=== PATIENT | female | born 1990 | race African-American/Black ===

== ENCOUNTER 2018-02-06 16:05 | Emergency (ER) | payer SELFPAY ==
[~2018-02-06] VITALS: Ht 162.6 cm; Wt 83.0 kg
[2018-02-06 16:24] VITALS: BP 123/85
--- NOTE | 2018-02-06 16:51 | NUR ---
PT LEFT WITHOUT DISCHARGE INSTRUCTIONS.
== END 2018-02-06 16:52 | disposition home or self-care (01) ==
LOC: ER 16:14
DX: K14.0 Glossitis (principal); E07.9 Disorder of thyroid, unspecified
CPT/HCPCS: 99281; A4606; Z7610; Z7502